=== PATIENT | female | born 1975 | race Caucasian/White ===

== ENCOUNTER 2016-10-12 17:38 | Emergency (ER) | payer MEDICARE ==
[2016-10-12 18:08] VITALS: BP 139/86
[2016-10-12] MEDS ORDERED: Ondansetron ODT TAB* 4 MG PO ONE (18:10)
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
== END 2016-10-12 19:01 | disposition home or self-care (01) ==
LOC: UCEAST 17:38
DX: R11.2 Nausea with vomiting, unspecified (principal); R19.7 Diarrhea, unspecified; I10 Essential (primary) hypertension; Z88.5 Allergy status to narcotic agent; Z88.4 Allergy status to anesthetic agent; Z88.0 Allergy status to penicillin
CPT/HCPCS: 83630; 87045; 87046; 87328; 87329; 87493; 87899; 99212; A9270-GY; G0463

== ENCOUNTER 2017-02-14 14:09 | Emergency (ER) | payer MEDICARE ==
[2017-02-14 14:31] VITALS: BP 132/94
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
== END 2017-02-14 15:05 | disposition home or self-care (01) ==
LOC: UCEAST 14:09
DX: H60.91 Unspecified otitis externa, right ear (principal)
CPT/HCPCS: 99212; G0463

== ENCOUNTER 2017-05-11 17:54 | Emergency (ER) | payer MEDICARE ==
[2017-05-11 18:08] VITALS: BP 133/77
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
== END 2017-05-11 18:32 | disposition left against medical advice (07) ==
LOC: UCEAST 17:54
DX: R07.9 Chest pain, unspecified (principal); Z88.6 Allergy status to analgesic agent; Z88.1 Allergy status to other antibiotic agents; Z88.0 Allergy status to penicillin; Z79.82 Long term (current) use of aspirin; R06.02 Shortness of breath
CPT/HCPCS: 93005; 99212; G0463

== ENCOUNTER 2017-05-11 18:43 | Emergency (ER) | payer MEDICARE ==
[2017-05-11 19:42] VITALS: BP 173/100
== END 2017-05-11 19:59 | disposition left against medical advice (07) ==
LOC: ED 18:43
DX: R07.89 Other chest pain (principal); Z53.21 Procedure and treatment not carried out due to patient leaving prior to being seen by health care provider
CPT/HCPCS: 93005; 99282

== ENCOUNTER 2017-06-28 10:08 | Emergency (ER) | payer MEDICARE ==
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
[2017-06-28 13:15] VITALS: BP 138/99
== END 2017-06-28 13:15 | disposition home or self-care (01) ==
LOC: UCEAST 10:08
DX: J20.9 Acute bronchitis, unspecified (principal); R50.9 Fever, unspecified
CPT/HCPCS: 87651; 99212; G0463